=== PATIENT | female | born 1950 | race Caucasian/White ===

== ENCOUNTER 2018-11-03 01:17 | Observation (INO) | payer MEDICARE, MEDICAID, OTHER | END 2018-11-04 12:48 | disposition home or self-care (01) | LOC: ER 01:17 → ICU 01:53 → 4TH 14:00 ==

== ENCOUNTER 2019-05-20 16:13 | Emergency (ER) | payer MEDICARE, MEDICAID ==
[~2019-05-20] VITALS: Ht 162.6 cm; Wt 152.9 kg
[~2019-05-20 16:13] MED LIST: ALBU2.5V4 INH; AMIT25TA9 PO; CHOL100045 PO; FOLI1TAB24 PO; GLYC10.7 IH; HYDR-3812 PO; IBUP-1773 PO; LEVO75TA6 PO; LOSA25TA41 PO; METO-370 PO; MONT10TA24 PO; ONDA8TAB13 PO; RT-ALBUINH IH; SENN8.6T81 PO
[2019-05-20] MEDS ORDERED: NS IV 1000 ML 1,000 ML ONE ×2 (16:22→16:43)
[2019-05-20 16:34] LABS: BASOPHILS % (AUTO) 0 % (0-10); EOSINOPHILS # (AUTO) 0.1 10^3/uL (0.0-0.3); EOSINOPHILS % (AUTO) 1 % (0-10); HEMATOCRIT 38 % (35-52); HEMOGLOBIN 11.9 G/DL (11.5-16.0); LYMPHOCYTES # (AUTO) 2.9 X 10^3 (1.0-4.0); LYMPHOCYTES % (AUTO) 25 % (12-44); MEAN CORPUSCULAR HEMOGLOBIN 30 PG (25-34); MEAN CORPUSCULAR HGB CONC 31 G/DL (32-36); MEAN CORPUSCULAR VOLUME 97 FL (80-99); MEAN PLATELET VOLUME 11.1 FL (7.4-10.4); MONOCYTES # (AUTO) 0.6 X 10^3 (0.0-1.0); MONOCYTES % (AUTO) 5 % (0-12); NEUTROPHILS # (AUTO) 8.3 X 10^3 (1.8-7.8); NEUTROPHILS % (AUTO) 70 % (42-75); PLATELET COUNT 151 10^3/uL (130-400); RED CELL DISTRIBUTION WIDTH 13.4 % (10.0-14.5); WHITE BLOOD COUNT 11.8 10^3/uL (4.3-11.0)
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
[2019-05-20 16:45] LABS: INR 1.1 (0.8-1.4)
[2019-05-20 16:46] LABS: PROTHROMBIN TIME PATIENT 14.2 SEC (12.2-14.7)
[2019-05-20] MEDS ORDERED: fentaNYL INJECTION 100 MCG/2 ML AMP IVP STA (16:49)
[2019-05-20 16:53] LABS: ALANINE AMINOTRANSFERASE 21 U/L (0-55); ALBUMIN 3.6 GM/DL (3.2-4.5); ALKALINE PHOSPHATASE 105 U/L (40-136); BILIRUBIN,TOTAL 0.4 MG/DL (0.1-1.0); BUN/CREATININE RATIO 15; CALCIUM 9.9 MG/DL (8.5-10.1); CARBON DIOXIDE 27 MMOL/L (21-32); CHLORIDE 101 MMOL/L (98-107); CREATININE SERUM 0.84 MG/DL (0.60-1.30); GFR ESTIMATED > 60; GLUCOSE 124 MG/DL (70-105); POTASSIUM 4.3 MMOL/L (3.6-5.0); SODIUM 139 MMOL/L (135-145); TOTAL PROTEIN 7.4 GM/DL (6.4-8.2)
[2019-05-20] MEDS ORDERED: ONDANSETRON 4 MG/2 ML (SDV) Z0FRAN ONE (17:17)
[2019-05-20] MEDS ORDERED: NS IV 1000 ML 1,000 ML IV SCH ×2 (17:22→21:59)
[2019-05-20] MEDS ORDERED: ONDANSETRON 4 MG/2 ML (SDV) Z0FRAN IVP ONE (17:30)
[2019-05-20] MEDS ORDERED: LACTATED RINGERS 1,000 ML IV ONE ×2 (18:07→21:28)
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
--- NOTE | 2019-05-20 18:57 | Diagnostic Imaging Report ---
INDICATION: Right shoulder injury. COMPARISON: None. FINDINGS: Two views of the right shoulder demonstrate comminuted displaced proximal humeral fracture. There is no glenohumeral dislocation. IMPRESSION: Comminuted proximal humeral fracture with displacement. Dictated by: Dictated on workstation # [id number]
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
[2019-05-20] MEDS ORDERED: CYCLOBENZAPRINE 10 MG (FLEXERIL) TAB PO STA ×2 (19:11→23:17)
[2019-05-20] MEDS ORDERED: HYDROcodone/APAP 10 MG/325 MG (LORTAB) TAB PO ONE (19:15)
[2019-05-20] MEDS ORDERED: fentaNYL INJECTION 100 MCG/2 ML AMP ONE (19:47)
[2019-05-20] MEDS ORDERED: fentaNYL INJECTION 100 MCG/2 ML AMP IVP ONE ×2 (20:00→23:30)
[2019-05-20] MEDS ORDERED: DIAZEPAM INJ 10 MG/2 ML (VALIUM) SYR IVP ONE (20:00)
[2019-05-20] MEDS ORDERED: KETAMINE HCL 100 MG/ML 5 ML VIAL IM ONE (20:15)
[2019-05-20] MEDS ORDERED: TETANUS,DIPTH,PERTUSS P/F (BOOSTRIX) 0.5 ML VIAL IM ONE ×2 (20:39→20:45)
--- NOTE | 2019-05-20 21:31 | Diagnostic Imaging Report ---
INDICATION: Post reduction COMPARISON: None FINDINGS: Two views of the left ankle demonstrate realignment of the ankle mortise. The distal tibia, fibula fracture sites appear intact. The medial malleolus is well aligned. IMPRESSION: Relocation of the ankle mortise Dictated by: Dictated on workstation # [id number]
[2019-05-20 21:32] LABS: BILIRUBIN,URINE NEGATIVE (NEGATIVE); CLARITY,URINE CLEAR; COLOR,URINE YELLOW; GLUCOSE, URINE (UA) NEGATIVE (NEGATIVE); KETONES,URINE NEGATIVE (NEGATIVE); LEUKOCYTE ESTERASE ,URINE NEGATIVE (NEGATIVE); NITRITE,URINE NEGATIVE (NEGATIVE); PH,URINE 7 (5-9); PROTEIN,URINE 2+ (NEGATIVE); UROBILINOGEN,URINE NORMAL (NORMAL)
[2019-05-20 21:40] LABS: RBC,URINE 0-2 /HPF
[2019-05-20 21:41] LABS: BACTERIA,URINE FEW /HPF; WBC,URINE RARE /HPF
[2019-05-20 21:47] LABS: BASOPHILS % (AUTO) 0 % (0-10); EOSINOPHILS % (AUTO) 0 % (0-10); HEMATOCRIT 21 % (35-52); LYMPHOCYTES # (AUTO) 0.5 X 10^3 (1.0-4.0); LYMPHOCYTES % (AUTO) 5 % (12-44); MEAN CORPUSCULAR HEMOGLOBIN 30 PG (25-34); MEAN CORPUSCULAR HGB CONC 29 G/DL (32-36); MEAN CORPUSCULAR VOLUME 102 FL (80-99); MEAN PLATELET VOLUME 11.3 FL (7.4-10.4); MONOCYTES # (AUTO) 0.7 X 10^3 (0.0-1.0); MONOCYTES % (AUTO) 7 % (0-12); NEUTROPHILS # (AUTO) 8.1 X 10^3 (1.8-7.8); NEUTROPHILS % (AUTO) 88 % (42-75); PLATELET COUNT 82 10^3/uL (130-400); RED CELL DISTRIBUTION WIDTH 13.4 % (10.0-14.5); WHITE BLOOD COUNT 9.3 10^3/uL (4.3-11.0)
[2019-05-20 21:49] LABS: HEMOGLOBIN 6.1 G/DL (11.5-16.0)
[2019-05-20] MEDS ORDERED: NS IV 500 ML 500 ML ONE (22:17)
[2019-05-20 23:45] VITALS: BP 130/85
[2019-05-20] MEDS ORDERED: POTA99TA21 PO (23:57)
[2019-05-20] MEDS ORDERED: SIME80TA16 PO (23:57)
[2019-05-20] MEDS ORDERED: CYCL10TA9 PO (23:57)
[2019-05-20] MEDS ORDERED: BENZ100C18 PO (23:57)
[2019-05-20] MEDS ORDERED: FURO-125 PO (23:57)
[2019-05-21] MEDS ORDERED: LORazepam INJ 2 MG/ML (ATIVAN) VIAL IVP ONE (00:45)
--- NOTE | 2019-05-21 01:00 | NUR ---
[facility] TRANSFER TEAM HERE AT THIS TIME. REPORT GIVEN BY Vaughn RIBERA APRN.
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
[2019-05-21] MEDS ORDERED: NS IV 1000 ML 1,000 ML IV SCH (02:19)
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
[2019-05-21] MEDS ORDERED: fentaNYL INJECTION 100 MCG/2 ML AMP IVP ONE ×4 (03:15→10:30)
[2019-05-21 04:03] LABS: HEMOGLOBIN 9.8 G/DL (11.5-16.0)
[2019-05-21] MEDS ORDERED: NS (IVPB) 250 ML ONE (05:23)
[2019-05-21] MEDS ORDERED: NOREPINEPHRINE 4 MG/4 ML (LEVOPHED) AMP IV ONE (05:23)
[2019-05-21] MEDS ORDERED: NOREPINEPHRINE 4 MG in NS (IVPB) 250 ML IV SCH (05:30)
--- NOTE | 2019-05-21 06:25 | NUR ---
PT AWAKE TALKING. RT PLACE VAPOTHERM AT 20L 40%, 02 SATS 99%.
--- NOTE | 2019-05-21 06:30 | NUR ---
RT INCREASED VAPOTHERM TO 30L.
--- NOTE | 2019-05-21 07:00 | NUR ---
REPORT GIVEN TO DEBBIE RODRIGUEZ. SEE TEJINDER FREED AND DR. MALAGON DICTATION NOTES FOR ABOUT DELAY OF TRANSFER TO [facility].
--- NOTE | 2019-05-21 07:30 | NUR ---
ASSUMED CARE OF PT FROM DEBBIE RUBI AT THIS TIME. PT AND FAMILY UPDATED ON TRANSFER STATUS AND CREW SHOULD BE HERE APPROX 0930. PT PROVIDED ORAL CARE AT THIS TIME. NO NEW CONCERNS FROM PT OR FAMILY. VSS. WILL CONTINUE TO MONITOR PT.
[2019-05-21 07:36] VITALS: BP 105/56
--- NOTE | 2019-05-21 08:12 | NUR ---
UPDATED REPORT GIVEN TO AZAR LEWIS @ SURGICAL ICU AT THIS TIME.
[2019-05-21] MEDS ORDERED: fentaNYL INJECTION 100 MCG/2 ML AMP ONE (08:36)
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
[2019-05-21 09:28] VITALS: BP 92/54
[2019-05-21 10:55] VITALS: BP 95/55
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
== END 2019-05-21 10:55 | disposition short-term general hospital (02) ==
LOC: EDUNIT# 16:13 → ER 16:14
DX: S42.351A Displaced comminuted fracture of shaft of humerus, right arm, initial encounter for closed fracture (principal); S42.91XA Fracture of right shoulder girdle, part unspecified, initial encounter for closed fracture; S82.852A Displaced trimalleolar fracture of left lower leg, initial encounter for closed fracture; S32.512A Fracture of superior rim of left pubis, initial encounter for closed fracture; S12.190A Other displaced fracture of second cervical vertebra, initial encounter for closed fracture; C34.11 Malignant neoplasm of upper lobe, right bronchus or lung; J44.9 Chronic obstructive pulmonary disease, unspecified; I10 Essential (primary) hypertension; K21.9 Gastro-esophageal reflux disease without esophagitis; M79.7 Fibromyalgia; E66.9 Obesity, unspecified; R40.2142 Coma scale, eyes open, spontaneous, at arrival to emergency department; R40.2252 Coma scale, best verbal response, oriented, at arrival to emergency department; R40.2362 Coma scale, best motor response, obeys commands, at arrival to emergency department; Z88.6 Allergy status to analgesic agent; Z99.81 Dependence on supplemental oxygen; V49.59XA Passenger injured in collision with other motor vehicles in traffic accident, initial encounter
CPT/HCPCS: 36415; 36430; 51702; 70450; 71045; 71260; 72125; 73030; 73060; 73562; 73590; 73600; 73610; 74177; 80053; 81000; 82962; 85014; 85018; 85025; 85610; 85730; 86850; 86900; 86901; 86920; 90471; 90715; 93041; 96361; 96365; 96366; 96375; 96376